=== PATIENT | female | born 1990 | race Two or more races ===

== ENCOUNTER 2023-03-12 10:05 | Emergency (ER) | payer OTHER ==
[~2023-03-12] VITALS: Ht 152.4 cm; Wt 127.5 kg
[2023-03-12] MEDS ORDERED: LABETALOL HCL200 MG (10:29)
[2023-03-12] MEDS ORDERED: PRENATABS RX T1 EACH (10:29)
[2023-03-12] MEDS ORDERED: ASA81 MG (10:29)
[2023-03-12 12:37] LABS: HEMATOCRIT 39.9 % (36.0-45.00); HEMOGLOBIN 13.5 g/dL (12.0-15.00); MEAN CELL VOLUME 90.8 fL (80.00-100.00); MEAN CORPUSCULAR HEMOGLOBIN 30.8 pg (27.00-32.0); MEAN CORPUSCULAR HGB CONC 33.9 g/dl (32.0-36.0); PLATELET COUNT 228 K/uL (150-450); RED BLOOD COUNT 4.39 M/uL (4.00-6.00)
[2023-03-12 13:25] LABS: CALCIUM 9.1 mg/dL (8.5-10.1); CREATININE SERUM 0.67 mg/dL (0.55-1.02); GFR 102.66; POTASSIUM 4.1 mEq/L (3.5-5.1)
[2023-03-12 14:01] LABS: PH,URINE 5.5 (5.0-8.0); URINE APPEARANCE Cloudy; URINE BILIRRUBIN Negative (NEGATIVE); URINE BLOOD Negative; URINE COLOR Yellow; URINE GLUCOSE Negative (NEGATIVE); URINE LEUKOCYTE Small; URINE NITRATE Negative; URINE PROTEIN Negative (NEGATIVE); URINE UROBILINOGEN 0.2 E.U./dl
[2023-03-12 14:04] LABS: URINE EPITHELIAL CELLS 33.2 uL (0.0-38.8); URINE RBC 43.5 uL (0.0-20.8); URINE WBC 97.5 uL (0.0-23.2)
[2023-03-12 14:19] LABS: URINE MUCUS SCANT
[2023-03-12] MEDS ORDERED: OSEL75CA PO (14:37)
[2023-03-12] MEDS ORDERED: DUI500 PO (14:37)
[2023-03-12] MEDS ORDERED: ZOFRAN8 MG PO (14:39)
[2023-03-12] MEDS ORDERED: PEPCID AC20 MG PO (14:39)
== END 2023-03-12 14:43 | disposition home or self-care (01) ==
LOC: ER 10:05
PROVIDERS: General Practice
DX: R11.10 Vomiting, unspecified (principal); Z34.90 Encounter for supervision of normal pregnancy, unspecified, unspecified trimester; J10.1 Influenza due to other identified influenza virus with other respiratory manifestations

== ENCOUNTER 2023-06-17 10:11 | Outpatient (CLI) | payer OTHER ==
[~2023-06-17 10:11] MED LIST: ASA81 MG; DUI500 PO; LABETALOL HCL200 MG; OSEL75CA PO; PEPCID AC20 MG PO; PRENATABS RX T1 EACH; ZOFRAN8 MG PO
== END 2023-06-17 11:58 | disposition home or self-care (01) ==
LOC: NST 10:11
PROVIDERS: ATTEND Obstetrics & Gynecology
DX: Z34.83 Encounter for supervision of other normal pregnancy, third trimester (principal)

== ENCOUNTER 2023-07-15 15:42 | Outpatient (CLI) | payer OTHER | END 2023-07-15 17:18 | disposition home or self-care (01) | LOC: NST 15:42 | PROVIDERS: ATTEND Obstetrics & Gynecology Gynecology | DX: Z34.83 Encounter for supervision of other normal pregnancy, third trimester (principal) ==